=== PATIENT | male | born 1995 | race Caucasian/White ===

== ENCOUNTER 2020-04-23 11:00 | Emergency (ER) | payer OTHER ==
[~2020-04-23] VITALS: Ht 170.1 cm; Wt 61.7 kg
[2020-04-23 11:06] VITALS: BP 131/77
--- NOTE | 2020-04-23 11:35 | NUR ---
PT ELOPED FROM THE DEPARTMENT WITH MOTHER CHASING AFTER HIM. SECURITY HAS BEEN CALLED.
[2020-04-23 11:37] LABS: BASO % 0.4 % (0.0-1.0); EOS % 0.1 % (1.0-4.0); HEMATOCRIT 45.3 % (42.0-52.0); LYMPH # 1.2 10*3/uL (1.3-4.4); LYMPH % 12.1 % (27.0-41.0); MEAN CELL VOLUME 85.6 fl (80.0-94.0); MEAN CORPUSCULAR HGB 28.2 pg (27.0-31.0); MEAN CORPUSCULAR HGB CONC 32.9 g/dl (33.0-37.0); MEAN PLATELET VOLUME 8.6 fl (9.6-12.3); MONO # 0.7 10*3/uL (0.1-1.0); MONO % 7.1 % (3.0-9.0); NEUT # 8.1 10*3/uL (2.3-7.9); PLATELET COUNT AUTOMATED 400 10*3/uL (130-400); RED BLOOD COUNT 5.29 10*6/uL (4.50-5.90); RED CELL DISTRI WIDTH 14.2 % (0-14.5); WHITE BLOOD COUNT 10.2 10*3/uL (4.8-10.8)
--- NOTE | 2020-04-23 11:46 | NUR ---
PT HAS NOT RETURNED TO ED.
[2020-04-23 11:53] LABS: ALBUMIN 3.9 gm/dl (3.1-4.5); ALKALINE PHOSPHATASE 60 U/L (45-117); BUN 12 mg/dl (7-24); CHLORIDE 105 mmol/L (98-107); CREATININE 1.16 mg/dL (0.70-1.30); POTASSIUM 3.6 mmol/L (3.5-5.1); SGOT/AST 9 IU/L (3-35); SGPT/ALT 21 U/L (12-78); SODIUM 136 mmol/L (136-145); TOTAL PROTEIN 7.5 gm/dL (6.4-8.2)
[2020-04-23 11:54] LABS: TROPONIN I < 0.015 ng/ml (<0.045)
== END 2020-04-23 11:46 | disposition left against medical advice (07) ==
LOC: ED 11:00 → EDHOLD 11:24 → ED 11:24
PROVIDERS: Emergency Medicine
DX: F19.939 Other psychoactive substance use, unspecified with withdrawal, unspecified (principal)